=== PATIENT | male | born 1970 | race Hispanic/Latino ===

== ENCOUNTER 2016-11-25 18:49 | Emergency (ER) | payer OTHER ==
[~2016-11-25] VITALS: Ht 175.3 cm; Wt 86.4 kg
[2016-11-25 18:59] VITALS: BP 142/81; PULSE 83; RESP 16; O2SAT 97
[2016-11-25] MEDS ORDERED: TdaP Vaccine 0.5 mL Inj IM ONE (19:27)
[2016-11-25] MEDS ORDERED: Bupivacaine 0.5% 50 mL Inj SUBQ ONE (19:40)
[2016-11-25] MEDS ORDERED: Bupivacaine-MPF 0.5% 30 mL Inj ONE (19:45)
--- NOTE | 2016-11-25 20:02 | ED.REPORT ---
HPI-General Illness Date of Service November 25, 2016 ED Provider: Darnell Queen PA-C Lizeth is an otherwise healthy 46-year-old male playing with a chief complaint of a laceration to his left index finger. Reports that he cut himself with a knife soiled with cow manure. He believes he had a tetanus shot 7 years ago. Denies numbness/tingling in extremity. Denies comorbidities such as diabetes, HIV, immunosuppressive drugs and bleeding/clotting disorders. Nursing Notes Stated Complaint: CUT FINGER Chief Complaint: Laceration Nursing Notes Reviewed: Yes Allergies: Coded Allergies: No Known Drug Allergies (Verified Allergy, Unknown, 10/02/14) Scheduled Cephalexin (Cephalexin) 500 Mg Tablet 500 MG PO QID General Time Seen by MD: 19:32 Chief Complaint Laceration Past Medical History Past Medical History healthy Smoking History Never Smoker Review of Systems Negative unless stated otherwise in history of present illness Physical Exam General: Well appearing, well developed, well nourished, no acute distress. Left wrist: Radial pulse 2+. Left hand, index finger: Shallow 1 cm laceration on the palmar and radial aspect of the PIP joint. No incursion into joint space. Full strength and range of motion at MCP, PIP and DIP joint. Sensation to light touch intact on both the radial and ulnar aspect of the distal index finger. Brisk capillary refill intact. Head: Atraumatic, normocephalic. Eyes: No scleral icterus or injection. No discharge. Vision grossly intact. ENT: Voice clear, hearing grossly intact. Respiratory: No respiratory distress, no increased work of breathing. Speaks in complete sentences. Skin: Warm and dry. Neurological: Grossly nonfocal. Psychological: alert and oriented. Speech appropriate, linear and logical. Behavior appropriate. Vital Signs Vital Signs Date Time Temp Pulse Resp B/P Pulse Ox O2 Delivery O2 Flow Rate FiO2 11/25/16 18:59 36.7 83 16 142/81 97 Room Air Initial VS: Vital signs abnormal (elevated blood pressure) Procedures Laceration Management Consent / Setup / Site Prep: Consent from patient, Hand hygiene observed, Stand sterile technique Wound Length: 1 cm Local Anesthesia: Bupivacaine 0.5% (6 mL), 27g needle Digital Block: Yes Digit Involved: Index finger left Wound Preparation: Hibiclens - Chlorhexidine, Normal saline Debridement: None Foreign Body Explore / Removal: Explored for foreign body Repair Skin: Nylon (5-oh) # Sutures - Skin: 3 Closure Layers: 1 Suture Technique: Simple (2), Mattress (1) Post-Procedure / Complications: Antibiotic oint applied, Dressing applied, No complications, Condition improved, Tolerated procedure well, Patient stable Re-Eval/Medical Decision Med Decision/Clinical Course Otherwise healthy 46-year-old male presents with a laceration to his left index finger. The patient is right-handed. Patient states he cut his hand with a pocket knife that was soiled with cow manure. He believes his last tetanus shot was 7 years ago. He denies comorbidities. His exam reveals a 1 Center laceration on the palmar radial aspect of the left first PIP joint. This is well visualized, no incursion into the joint space, no foreign body. Digital block performed using 6 mL of bupivacaine 0.5%. Good analgesia was obtained. The wound was soaked in normal saline with Betadine for approximately 25 minutes , then scrubbed with chlorhexidine. Wound is in 1 layer with 2 interrupted 5-0 nylon sutures and one horizontal mattress suture of 5-0 nylon. Dressed with a likely cause. Tetanus is updated, initial dose of Keflex is provided. Prescription for Keflex is provided out of consideration for a dirty wound. Advised regarding wound care, primary care follow-up, emergent return precautions, [id number] analgesia. She verbalizes understanding of and consent to the plan. Discharge & Departure Primary Impression: Laceration Additional Impression: Elevated blood pressure reading Disposition: Home Discharge Condition All VS Reviewed: Yes Condition: Stable Additional Instructions: Evaluation in the emergency department for a laceration. There appears to be no damage to the joint capsule or tendons. This appears to be a dirty wound, which I think justifies use of antibiotics to prevent infection. I will write a prescription for Keflex 500 mg to be taken 4 times a day for 5 days. You have been given your first dose here in the emergency department. Please be sure to take every dose. We have updated your tetanus shot We have cleaned, sutured and dressed the wound with antibiotic ointment and gauze. Please leave this dressing on and dry for the next 24 hours. After that you can remove the dressing, clean with soap and water and then reapply antibiotic ointment and gauze or Band-Aid. Please do not submerge the wound as in washing dishes, swimming or soaking in a tub until you have the sutures removed. The pain is best treated with 400 mg of ibuprofen (Advil, Motrin) every 6 hours , or 1000 mg of acetaminophen (Tylenol) every 6 hours. These drugs can be taken at the same time for more severe pain. Be vigilant for signs of infection. While a small amount of redness, tenderness and clear or pink drainage is normal, any increasing pain, redness, swelling or the appearance of pus suggests infection. More severe infection as suggested by symptoms such as fever, chills, feeling ill, racing heart. Please return to emergency Department if you notice signs of infection. Follow-up with your primary care provider or return to the emergency department in 7 days for suture removal. I also note that your blood pressure was elevated during your visit to the emergency department. Please discuss this with your primary care provider. I have provided a referral. Referrals: Matteo Freire MD (PCP) EDSupervising Provider for APC: Shanti Lyon MD copies to: Matteo Freire MD, Seth PA-C November 25, 2016 20:02
[2016-11-25] MEDS ORDERED: CEPH500T PO (21:04)
[2016-11-25 21:20] VITALS: BP 140/67; PULSE 78; RESP 18; O2SAT 99
== END 2016-11-25 21:20 | disposition home or self-care (01) ==
LOC: SED 18:49
DX: S61.211A Laceration without foreign body of left index finger without damage to nail, initial encounter (principal); W26.0XXA Contact with knife, initial encounter; Y93.89 Activity, other specified; Y92.69 Other specified industrial and construction area as the place of occurrence of the external cause; Y99.0 Civilian activity done for income or pay; R03.0 Elevated blood-pressure reading, without diagnosis of hypertension; Z23 Encounter for immunization